=== PATIENT | female | born 1965 | race Caucasian/White ===

== ENCOUNTER 2016-12-12 07:51 | Outpatient (CLI) | payer OTHER ==
--- NOTE | 2016-12-12 09:46 | ULT ---
ULTRASOUND ABDOMEN: HISTORY: A 51-year-old female with upper abdominal pain. FINDINGS: The patient is status post cholecystectomy. The common duct measures 8 mm in diameter. The liver d emonstrates increased echogenicity, consistent with fatty infiltration. No focal mass or intrahepat ic ductal dilatation is seen. The spleen measures 10 cm in length and is unremarkable. The kidneys have a normal appearance. The visualized portions of the pancreas, aorta, and IVC are unremarkable . No free fluid is seen. IMPRESSION: 1. Fatty liver. 2. Status post cholecystectomy. POS: [facility]
== END 2016-12-12 07:52 | disposition home or self-care (01) ==
LOC: ULT 07:51
PROVIDERS: ATTEND Internal Medicine
DX: R10.11 Right upper quadrant pain (principal); K76.0 Fatty (change of) liver, not elsewhere classified; Z90.49 Acquired absence of other specified parts of digestive tract
CPT/HCPCS: 76700

== ENCOUNTER 2017-01-01 09:25 | Outpatient (CLI) | payer OTHER ==
--- NOTE | 2017-01-01 11:52 | CT ---
CT CHEST WITHOUT CONTRAST: Date: 01/01/17 HISTORY: Follow-up lung nodule. COMPARISON: CT chest with contrast dated 05/07/16. FINDINGS: The previously described 6.0 mm nodule adjacent to the minor fissure is unchanged and likely represe nts a perifissural lymph node. The previously described 7.0 mm nodule within the right lung base bhavin ears slightly smaller in width and measures just under 7.0 mm. No significant change. The previously described ground-glass opacity in the right lower lobe is no longer visualized. No new suspicious pulmonary nodule. No focal air space consolidation, pneumothorax, or effusion. The re is some mild limitation in evaluation of the right lower lobe and left lower lobe due to motion a rtifact. There is a triangular subpleural nodule in the right middle lobe, likely focal area of atelectasis. No adenopathy in the chest. No pericardial effusion. Upper abdomen appears unremarkable. No compression fracture of the thoracic spine. IMPRESSION: Unchanged appearance of the previously described right minor fissure perifissural nodule and right l ower lobe pulmonary nodule. Follow-up CT of the chest in 1 year is recommended to confirm benignity. POS: [facility]
== END 2017-01-01 09:26 | disposition home or self-care (01) ==
LOC: CT 09:25
PROVIDERS: ATTEND Internal Medicine
DX: R91.8 Other nonspecific abnormal finding of lung field (principal); G47.33 Obstructive sleep apnea (adult) (pediatric)
CPT/HCPCS: 71250

== ENCOUNTER 2017-04-26 10:52 | Day surgery (SDC) | payer OTHER ==
[2017-04-25 11:23] VITALS: BMI 37.5
[2017-04-26] MEDS ORDERED: Fentanyl 250 MCG/5 ML VIAL ONE ×2 (12:23→14:17)
[2017-04-26] MEDS ORDERED: Midazolam HCl 2 mg/2 ml Vial ONE (12:23)
--- NOTE | 2017-04-26 15:24 | CT ---
CT LUMBAR SPINE WITHOUT CONTRAST: HISTORY: Lumbar radiculopathy. COMPARISON: None. TECHNIQUE: A lumbar spine CT is performed without contrast. Sagittal and coronal reformatted images are submitt ed for interpretation. FINDINGS: No retroperitoneal mass, lymphadenopathy, or hematoma. The visualized aorta has normal caliber. No periaortic fat stranding. Symmetric attenuation of psoas muscle. Nonobstructing calculus in the rig ht renal pelvis. Lumbar spine vertebral body height is maintained. There is no fracture. No spondylolisthesis or spo ndylosis. Lumbar spine vertebral body height is maintained. No fracture. There are five lumbar type vertebral bodies. Limited evaluation of the contents of the central spinal canal and neural foramina. T12-L1: No significant central canal stenosis. The neural foramina are patent. L1-L2: No significant central canal stenosis. The neural foramina are patent. L2-L3: No significant central canal stenosis. The neural foramina are patent. L3-L4: Generalized disk bulge with a right paracentral component. Mild central canal stenosis. Mil d bilateral foraminal narrowing. L4-L5: Generalized disk bulge, ligamentum flavum thickening, and facet hypertrophy are present. Dis k material encroaches upon the right subarticular zone. There is presumed mass effect and obscuratio n of the traversing right L5 nerve root. There is minimal narrowing of the left subarticular zone. Overall mild central canal stenosis. There is posterior element hypertrophy. Bilateral facet vacuum joint phenomenon is noted. Mild to moderate bilateral foraminal narrowing. L5-S1: No high grade central canal stenosis. No high grade foraminal narrowing. IMPRESSION: Degenerative changes of the lumbar spine, as above. POS: [facility]
--- NOTE | 2017-04-26 16:26 | MRI ---
CERVICAL SPINE MRI WITHOUT CONTRAST 04/26/17 HISTORY: Chronic neck pain. Cervical radiculopathy. Neuralgia. Paresthesia. COMPARISON: 01/18/15 TECHNIQUE: Cervical spine MRI is performed without intravenous gadolinium administration. Multisequential, multi planar imaging is performed. FINDINGS: Appropriate T1 marrow signal intensity of the cervical vertebrae. Cervical spine vertebral body heigh t is maintained. Straightening of the normal cervical lordosis likely due to patient position, spasm or cervical color. Cervical alignment is similar to the previous examination. No evidence of edema or ligamentous injury. Visualized brain parenchyma, cervicomedullary junction, cervical cord, and the upper thoracic cord shearer ve a normal size and signal intensity. C2-C3: No significant disc osteophyte complex. No significant central canal stenosis. Neural foramina are patent. C3-C4: Minimal central disc osteophyte complex. No significant central canal stenosis. Neural foramin a are patent. C4-C5: There is a central disc osteophyte complex that abuts the thecal sac. There is mild deformity of the ventral thecal sac and ventral cord. Mild central canal stenosis. No T2 hyperintensity of the cord. Bilaterally, neural foramina are patent. C5-C6: There is a broad based disc osteophyte complex with a right paracentral component. Mild flatte ines of the thecal sac and right hemicord. Overall there is mild central canal stenosis. There is deg enerative change of the right uncovertebral joint that results in mild right foraminal narrowing. Lef t neural foramen is patent. C6-C7: No significant disc osteophyte complex. No significant central canal stenosis. Foramina are pa tent. C7-T1: No significant disc osteophyte. No significant central canal stenosis. Neural foramina are pat ent. IMPRESSION: Degenerative changes cervical spine as above. POS: [facility]
== END 2017-04-26 15:15 | disposition home or self-care (01) ==
LOC: SDC/OP 10:52 → EDSTATUS 13:00 → SDC/OP 15:15
PROVIDERS: ATTEND Neurological Surgery
DX: M54.12 Radiculopathy, cervical region (principal); M54.16 Radiculopathy, lumbar region; M48.061 Spinal stenosis, lumbar region without neurogenic claudication
CPT/HCPCS: 72131; 72141; 96374; J2250; J3010

== ENCOUNTER 2018-01-15 07:49 | Outpatient (CLI) | payer OTHER ==
--- NOTE | 2018-01-15 09:11 | ULT ---
ABDOMINAL ULTRASOUND: HISTORY: Abdominal pain, more right-sided. FINDINGS: Real-time imaging of the upper abdomen shows the gallbladder to have been removed. The common duct i s in the 7 mm range which could be on the basis of the cholecystectomy. The liver shows fatty change . The spleen measures 9.1 cm in length. Right and left kidneys are normal in size and not obstructed. The pancreas is obscured. The abdomin al aorta and IVC regions appear unremarkable. IMPRESSION: 1. Postop cholecystectomy change. 2. Fatty changes of the liver. POS: [facility]
== END 2018-01-15 07:50 | disposition home or self-care (01) ==
LOC: SCSULT 07:49
PROVIDERS: ATTEND Internal Medicine
DX: R10.11 Right upper quadrant pain (principal); R11.0 Nausea; R07.9 Chest pain, unspecified; K76.0 Fatty (change of) liver, not elsewhere classified; Z90.49 Acquired absence of other specified parts of digestive tract
CPT/HCPCS: 76700

== ENCOUNTER 2018-02-24 13:44 | Outpatient (CLI) | payer OTHER | END 2018-02-24 13:45 | disposition home or self-care (01) | LOC: BICMAMMO 13:44 | PROVIDERS: ATTEND Internal Medicine | DX: Z12.31 Encounter for screening mammogram for malignant neoplasm of breast (principal) | CPT/HCPCS: 77063; 77067 ==

== ENCOUNTER 2020-04-22 11:13 | Day surgery (SDC) | payer OTHER ==
[2020-04-21 11:45] VITALS: BMI 37.5
[~2020-04-22 11:13] MED LIST: Ondansetron PF 4 MG/2 ML Vial ONE
[2020-04-22] MEDS ORDERED: Midazolam HCl 2 mg/2 ml Vial ONE ×2 (11:52→12:13)
[2020-04-22] MEDS ORDERED: Fentanyl 100 MCG/2 ML VIAL ONE (12:13)
== END 2020-04-22 13:42 | disposition home or self-care (01) ==
LOC: SDC/OP 11:13
PROVIDERS: ATTEND Physical Medicine & Rehabilitation
DX: M51.36 Other intervertebral disc degeneration, lumbar region (principal); M48.061 Spinal stenosis, lumbar region without neurogenic claudication; M43.16 Spondylolisthesis, lumbar region; Z79.899 Other long term (current) drug therapy
CPT/HCPCS: 72148; J2250; J2405; J3010

== ENCOUNTER 2020-11-02 12:54 | Outpatient (CLI) | payer OTHER | END 2020-11-02 12:55 | disposition home or self-care (01) | LOC: BICRAD 12:54 | PROVIDERS: ATTEND Internal Medicine Rheumatology | DX: M25.551 Pain in right hip (principal) ==

== ENCOUNTER 2020-12-05 16:08 | Outpatient (CLI) | payer OTHER ==
[2020-12-05 18:19] LABS: #Eosinphils 0.1 10x3/uL (0.0-0.5); #Monocytes 0.6 10x3/uL (0.0-1.1); #Neutrophils 7.5 10x3/uL (1.5-8.4); %Basophils 0.4 % (0.0-2.0); %Eosinophils 0.4 % (0.0-6.0); %Lymphocytes 26.8 % (18.0-47.0); %Monocytes 5.5 % (0.0-10.0); %Neutrophils 66.6 % (40.0-75.0); Hemoglobin 13.3 g/dL (12.0-15.5); Mean Corpuscular HGB CONC 32.2 g/dL (32.0-36.0); Mean Corpuscular Hemoglobin 28.6 pg (27.0-33.0); Mean Corpuscular Volume 88.8 fl (81.6-98.3); Mean Platelet Volume 10.1 fl (7.4-10.4); Platelet Count 395 10x3/uL (150-450); RBC Distribution Width 13.2 % (11.5-14.5); Red Blood Cell (RBC) Count 4.65 10x6/uL (3.90-5.03); White Blood Cell (WBC) Count 11.3 10x3/uL (3.5-10.5)
[2020-12-05 18:33] LABS: Anion Gap 13 mmol/L (10-20); BUN (Urea Nitrogen) 14 mg/dL (9.8-20.1); Calc. Creatinine Clearance 0 mL/min (70-130); Calcium 9.8 mg/dL (7.8-10.44); Carbon Dioxide 26 mmol/L (22-29); Chloride 107 mmol/L (98-107); Glucose 83 mg/dL (70-105); Potassium 4.1 mmol/L (3.5-5.1); Sodium 142 mmol/L (136-145)
[2020-12-06 00:59] LABS: SARS-CoV-2 PCR by NAA Not Detected (NotDetected)
== END 2020-12-05 16:09 | disposition home or self-care (01) ==
LOC: LABBT 16:08
PROVIDERS: ATTEND Physical Medicine & Rehabilitation
DX: Z01.818 Encounter for other preprocedural examination (principal); S83.241A Other tear of medial meniscus, current injury, right knee, initial encounter; Z20.822 Contact with and (suspected) exposure to COVID-19
CPT/HCPCS: 80048; 85025; 93005; 93010; U0003; U0005

== ENCOUNTER 2020-12-08 06:00 | Day surgery (SDC) | payer OTHER ==
[2020-12-07 10:04] VITALS: BMI 37.5
[2020-12-08] MEDS ORDERED: ceFAZolin 2 GM/DEX 5% 100 ML BAG ONE (06:16)
[2020-12-08] MEDS ORDERED: Fentanyl 100 MCG/2 ML VIAL ONE ×2 (06:26→06:53)
[2020-12-08] MEDS ORDERED: Midazolam HCl 2 mg/2 ml Vial ONE (06:53)
[2020-12-08] MEDS ORDERED: Bupivacaine HCl 0.5%/Epinephrine 1:200,000/PF 30 ml Vial ONE (07:26)
[2020-12-08] MEDS ORDERED: Ketorolac Tromethamine 30 MG/ML VIAL ONE (07:26)
[2020-12-08] MEDS ORDERED: Dexamethasone 20 MG/5 ML VIAL ONE (07:26)
[2020-12-08] MEDS ORDERED: Ondansetron PF 4 MG/2 ML Vial ONE (07:26)
[2020-12-08] MEDS ORDERED: Lidocaine 2% w/Epinephrine 1:200K 20 ML VIAL ONE (07:26)
== END 2020-12-08 11:20 | disposition home or self-care (01) ==
LOC: SDC 06:00
PROVIDERS: ATTEND Orthopaedic Surgery
PROC: 0SBC4ZZ Excision of Right Knee Joint, Percutaneous Endoscopic Approach (ICD-10-PCS; principal; 2020-12-08)
DX: S83.241A Other tear of medial meniscus, current injury, right knee, initial encounter (principal); G89.29 Other chronic pain; M54.2 Cervicalgia; M54.9 Dorsalgia, unspecified; M06.9 Rheumatoid arthritis, unspecified; M79.7 Fibromyalgia; E03.9 Hypothyroidism, unspecified; E55.9 Vitamin D deficiency, unspecified; Z79.899 Other long term (current) drug therapy
CPT/HCPCS: J1100; J1885; J2250; J2405; J3010

== ENCOUNTER 2021-10-19 08:35 | Outpatient (CLI) | payer OTHER ==
[2021-10-19 11:11] LABS: #Eosinphils 0.1 10x3/uL (0.0-0.5); #Monocytes 0.4 10x3/uL (0.0-1.1); #Neutrophils 5.5 10x3/uL (1.5-8.4); %Basophils 0.4 % (0.0-2.0); %Eosinophils 0.7 % (0.0-6.0); %Lymphocytes 32.8 % (18.0-47.0); %Monocytes 4.4 % (0.0-10.0); %Neutrophils 61.5 % (40.0-75.0); Hemoglobin 13.2 g/dL (12.0-15.5); Mean Corpuscular HGB CONC 32.5 g/dL (32.0-36.0); Mean Corpuscular Hemoglobin 28.6 pg (27.0-33.0); Mean Corpuscular Volume 87.9 fl (81.6-98.3); Mean Platelet Volume 9.9 fl (7.4-10.4); Platelet Count 338 10x3/uL (150-450); RBC Distribution Width 13.4 % (11.5-14.5); Red Blood Cell (RBC) Count 4.62 10x6/uL (3.90-5.03)
[2021-10-19 11:37] LABS: INR-International Normal Ratio 0.9
[2021-10-19 11:40] LABS: Anion Gap 14 mmol/L (10-20); BUN (Urea Nitrogen) 9 mg/dL (9.8-20.1); Calc. Creatinine Clearance 0 mL/min (70-130); Calcium 9.4 mg/dL (7.8-10.44); Carbon Dioxide 28 mmol/L (22-29); Chloride 104 mmol/L (98-107); Estimated GFR 96; Glucose 87 mg/dL (70-105); Sodium 142 mmol/L (136-145)
== END 2021-10-19 08:36 | disposition home or self-care (01) ==
LOC: LABBT 08:35
PROVIDERS: ATTEND Orthopaedic Surgery
DX: Z01.818 Encounter for other preprocedural examination (principal); M17.31 Unilateral post-traumatic osteoarthritis, right knee; T14.90XS Injury, unspecified, sequela; Z20.822 Contact with and (suspected) exposure to COVID-19
CPT/HCPCS: 80048; 85025; 85610; 87081; 87811; 93005; 93010

== ENCOUNTER 2021-10-24 06:44 | Observation (INO) | payer OTHER ==
[2021-10-19 15:24] VITALS: BMI 39.3
[2021-10-24] MEDS ORDERED: Sodium Chloride 0.9% 100 ML ONE ×2 (07:06→08:54)
[2021-10-24] MEDS ORDERED: Vancomycin (BATCH) 1.5 GRAM/300 ML BAG ONE (07:06)
[2021-10-24] MEDS ORDERED: Tranexamic Acid 1,000 MG/10 ML VIAL ONE (07:06)
[2021-10-24] MEDS ORDERED: Midazolam HCl 2 mg/2 ml Vial ONE (08:22)
[2021-10-24] MEDS ORDERED: Fentanyl 100 MCG/2 ML VIAL ONE ×2 (08:22→11:47)
[2021-10-24] MEDS ORDERED: Ondansetron PF 4 MG/2 ML Vial IVP PRN ×2 (08:46→11:00)
[2021-10-24] MEDS ORDERED: Promethazine HCl 25 MG/ML VIAL IM PRN ×3 (08:46→11:00)
[2021-10-24] MEDS ORDERED: Zolpidem Tartrate 5 MG TAB PO PRN ×2 (08:46→11:00)
[2021-10-24] MEDS ORDERED: fentaNYL Citrate/PF 100 MCG/2 ML SYRINGE ONE (08:46)
[2021-10-24] MEDS ORDERED: HYDROcodone/Acetaminophen 10/325 mg Tablet PO PRN ×3 (08:46→11:00)
[2021-10-24] MEDS ORDERED: diphenhydrAMINE 25 MG CAP PO PRN (08:46)
[2021-10-24] MEDS ORDERED: Acetaminophen 325 MG TAB PO PRN (08:46)
[2021-10-24] MEDS ORDERED: Non-Formulary Item 1 EACH (Buprenorphine Hcl [Belbuca] 450 MCG Film) PO PRN (08:47)
[2021-10-24] MEDS ORDERED: Bupivacaine PF 0.5% 30 ML VIAL ONE (08:48)
[2021-10-24] MEDS ORDERED: CEFAZOLIN 2 GM VIAL ONE (08:54)
[2021-10-24] MEDS ORDERED: Buprenorphine Hcl [Belbuca] 450 MCG Film PO PRN (08:55)
[2021-10-24] MEDS ORDERED: Non-Formulary Item 1 EACH (Levothyroxine Sodium [Levothyroxine] 75 MCG Capsule) PO SCH (09:00)
[2021-10-24] MEDS ORDERED: Non-Formulary Item 1 EACH (Leflunomide [Arava] 20 MG Tab) PO SCH (09:00)
[2021-10-24] MEDS ORDERED: Non-Formulary Item 1 EACH (Cholecalciferol (Vitamin D3) [Vitamin D3] 5,000 UNITS Capsule) PO SCH (09:00)
[2021-10-24] MEDS ORDERED: PROPOFOL 200 MG/20 ML VIAL ONE (09:10)
[2021-10-24] MEDS ORDERED: Ropivacaine 0.5% HCl/PF (150 MG/30 ML VIAL) ONE (09:10)
[2021-10-24] MEDS ORDERED: Lidocaine 1% MPF 2 ML VIAL ONE (09:10)
[2021-10-24] MEDS ORDERED: Ketorolac Tromethamine 30 MG/ML VIAL ONE (09:10)
[2021-10-24] MEDS ORDERED: Ondansetron PF 4 MG/2 ML Vial ONE (09:10)
[2021-10-24] MEDS ORDERED: Ondansetron HCl/PF 4 MG/2 ML Vial IVP PRN (10:34)
[2021-10-24] MEDS ORDERED: Promethazine HCl 25 MG/ML VIAL IVPB PRN (10:34)
[2021-10-24] MEDS ORDERED: Fentanyl 100 MCG/2 ML VIAL IV PRN (10:51)
[2021-10-24] MEDS ORDERED: Ropivacaine 0.2% 550 ML 550 ML NERVE BLCK SCH (11:00)
[2021-10-24] MEDS ORDERED: traMADol HCl 50 MG TAB PO PRN ×2 (11:00)
[2021-10-24] MEDS: Aspirin 81 mg Enteric Coated Tablet PO SCH ×2 (15:23→22:51)
[2021-10-24] MEDS: Cholecalciferol 1,000 UNITS (25 MCG) TAB PO SCH (15:23)
[2021-10-24] MEDS: Ferrous Gluconate 324 MG TAB PO SCH ×2 (15:23→22:50)
[2021-10-24] MEDS: Atenolol 25 MG TAB PO SCH (15:23)
[2021-10-24] MEDS: Multivitamin W/ Minerals 1 TAB PO SCH (15:24)
[2021-10-24] MEDS: Folic Acid 1 MG TAB PO SCH (15:24)
[2021-10-24] MEDS: Hydroxychloroquine Sulfate 200 MG TAB PO SCH (15:24)
[2021-10-24] MEDS: Senokot S 8.6-50 MG TAB PO SCH ×2 (15:24→22:50)
[2021-10-24] MEDS: Sodium Chloride 0.9% 1,000 ML IV SCH ×2 (15:24→18:25)
[2021-10-24] MEDS: Leflunomide 10 mg Tablet PO SCH (15:24)
[2021-10-24] MEDS: sulfaSALAzine 500 MG TAB PO SCH (15:25)
[2021-10-24] MEDS: Spironolactone 25 MG TAB PO SCH (15:25)
[2021-10-24] MEDS: CEFAZOLIN 2 GM in Sodium Chloride 0.9% 100 ML IVPB SCH ×2 (15:32→23:26)
[2021-10-24] MEDS: Ketorolac Tromethamine 30 MG/ML VIAL IVP SCH ×2 (15:32→22:51)
[2021-10-24] MEDS: HYDROcodone/Acetaminophen 10/325 mg Tablet PO PRN (17:17)
[2021-10-24] MEDS ORDERED: Pregabalin 50 MG CAP PO SCH (21:00)
[2021-10-24] MEDS ORDERED: DULoxetine 60 MG CAP PO SCH (21:00)
[2021-10-24] MEDS ORDERED: Non-Formulary Item 1 EACH (Pregabalin [Pregabalin] 100 MG Capsule) PO SCH (21:00)
[2021-10-25] MEDS: HYDROcodone/Acetaminophen 10/325 mg Tablet PO PRN ×3 (01:11→14:33)
[2021-10-25] MEDS: Sodium Chloride 0.9% 1,000 ML IV SCH (04:15)
[2021-10-25] MEDS: Ketorolac Tromethamine 30 MG/ML VIAL IVP SCH ×2 (05:27→14:38)
[2021-10-25 05:50] LABS: Hemoglobin 10.7 g/dL (12.0-16.0); Mean Corpuscular HGB CONC 32.3 g/dL (32.0-36.0); Mean Corpuscular Hemoglobin 29.7 pg (27.0-31.0); Mean Corpuscular Volume 91.8 fL (78.0-98.0); Mean Platelet Volume 7.6 fL (7.4-10.4); Platelet Count 264 thou/uL (130-400); RBC Distribution Width 12.3 % (11.5-14.5); Red Blood Cell (RBC) Count 3.61 mill/uL (4.20-5.40); White Blood Cell (WBC) Count 13.2 thou/uL (4.8-10.8)
[2021-10-25] MEDS ORDERED: Levothyroxine Sodium 75 MCG TAB PO SCH (06:00)
[2021-10-25] MEDS: Senokot S 8.6-50 MG TAB PO SCH (09:41)
[2021-10-25] MEDS: Ferrous Gluconate 324 MG TAB PO SCH (09:42)
[2021-10-25] MEDS: Cholecalciferol 1,000 UNITS (25 MCG) TAB PO SCH (09:42)
[2021-10-25] MEDS: Folic Acid 1 MG TAB PO SCH (09:43)
[2021-10-25] MEDS: Hydroxychloroquine Sulfate 200 MG TAB PO SCH (09:43)
[2021-10-25] MEDS: Aspirin 81 mg Enteric Coated Tablet PO SCH (09:43)
[2021-10-25] MEDS: Leflunomide 10 mg Tablet PO SCH (09:43)
[2021-10-25] MEDS: Spironolactone 25 MG TAB PO SCH (09:44)
[2021-10-25] MEDS: Atenolol 25 MG TAB PO SCH (09:44)
[2021-10-25] MEDS: Multivitamin W/ Minerals 1 TAB PO SCH (09:44)
[2021-10-25 12:30] VITALS: BP 102/68; TEMP 98.3
[2021-10-25] MEDS: sulfaSALAzine 500 MG TAB PO SCH (12:43)
== END 2021-10-25 14:40 | disposition home or self-care (01) ==
LOC: SDC 06:44 → SURG B 14:53 → SDC 15:16 → SURG B 15:16
PROVIDERS: ADMIT Orthopaedic Surgery; ATTEND Orthopaedic Surgery
PROC: 0SRC0J9 Replacement of Right Knee Joint with Synthetic Substitute, Cemented, Open Approach (ICD-10-PCS; principal; 2021-10-24)
PROC: 8E0YXBZ Computer Assisted Procedure of Lower Extremity (ICD-10-PCS; 2021-10-24)
PROC: 3E0T3BZ Introduction of Anesthetic Agent into Peripheral Nerves and Plexi, Percutaneous Approach (ICD-10-PCS; 2021-10-24)
DX: M17.31 Unilateral post-traumatic osteoarthritis, right knee (principal); S83.241A Other tear of medial meniscus, current injury, right knee, initial encounter; M94.261 Chondromalacia, right knee; M23.300 Other meniscus derangements, unspecified lateral meniscus, right knee; M06.9 Rheumatoid arthritis, unspecified; M79.7 Fibromyalgia; E03.9 Hypothyroidism, unspecified; E55.9 Vitamin D deficiency, unspecified; G89.29 Other chronic pain; M54.2 Cervicalgia; M54.9 Dorsalgia, unspecified; Z79.890 Hormone replacement therapy; Z79.899 Other long term (current) drug therapy; Z98.890 Other specified postprocedural states
CPT/HCPCS: 36415; 85027; A4306; C1713; C1776; J0690; J1885; J2250; J2405; J2550; J2704; J2795; J3010; J3370; J3490; J7050; S0020

== ENCOUNTER 2022-05-16 19:30 | Outpatient (CLI) | payer OTHER | END 2022-05-16 19:31 | disposition home or self-care (01) | LOC: SLEEPLAB 19:30 | PROVIDERS: ATTEND Orthopaedic Surgery | DX: G47.33 Obstructive sleep apnea (adult) (pediatric) (principal); G25.89 Other specified extrapyramidal and movement disorders | CPT/HCPCS: 95810 ==

== ENCOUNTER 2022-10-08 12:00 | Day surgery (SDC) | payer OTHER ==
[2022-10-05 12:15] VITALS: BMI 35.2
[2022-10-08] MEDS ORDERED: Midazolam HCl 2 mg/2 ml Vial ONE (13:17)
[2022-10-08] MEDS ORDERED: fentaNYL PF 100 MCG/2 ML SYRINGE ONE (13:18)
[2022-10-08 13:39] LABS: Anion Gap 8 mmol/L (10-20); BUN (Urea Nitrogen) 10 mg/dL (9.8-20.1); Calc. Creatinine Clearance 115 mL/min (70-130); Calcium 9.3 mg/dL (7.8-10.44); Carbon Dioxide 27 mmol/L (22-29); Chloride 107 mmol/L (98-107); Estimated GFR 91; Glucose 90 mg/dL (70-105); Potassium 4.1 mmol/L (3.5-5.1); Sodium 138 mmol/L (136-145)
== END 2022-10-08 14:35 | disposition home or self-care (01) ==
LOC: MRI 12:00
PROVIDERS: ATTEND Physical Medicine & Rehabilitation
DX: M99.33 Osseous stenosis of neural canal of lumbar region (principal); M54.2 Cervicalgia; I10 Essential (primary) hypertension; E03.9 Hypothyroidism, unspecified; K21.9 Gastro-esophageal reflux disease without esophagitis; G47.33 Obstructive sleep apnea (adult) (pediatric); Z98.890 Other specified postprocedural states; Z98.51 Tubal ligation status; Z90.710 Acquired absence of both cervix and uterus; Z96.651 Presence of right artificial knee joint; Z79.899 Other long term (current) drug therapy
CPT/HCPCS: 72148; 80048; 93005; 93010; J2250

== ENCOUNTER 2023-09-11 15:35 | Outpatient (CLI) | payer OTHER | END 2023-09-11 15:36 | disposition home or self-care (01) | LOC: BICRAD 15:35 | PROVIDERS: ATTEND Internal Medicine Rheumatology | DX: M06.09 Rheumatoid arthritis without rheumatoid factor, multiple sites (principal); R76.12 Nonspecific reaction to cell mediated immunity measurement of gamma interferon antigen response without active tuberculosis; Z79.899 Other long term (current) drug therapy | CPT/HCPCS: 71046 ==

== ENCOUNTER 2024-03-17 14:31 | Outpatient (CLI) | payer OTHER | END 2024-03-17 14:32 | disposition home or self-care (01) | LOC: BICMAMMO 14:31 | PROVIDERS: ATTEND Internal Medicine Rheumatology | DX: Z12.31 Encounter for screening mammogram for malignant neoplasm of breast (principal); Z78.0 Asymptomatic menopausal state; R07.9 Chest pain, unspecified; M85.851 Other specified disorders of bone density and structure, right thigh; M85.852 Other specified disorders of bone density and structure, left thigh | CPT/HCPCS: 77063; 77067; 77080 ==